=== PATIENT | male | born 1935 | race Caucasian/White ===

== ENCOUNTER 2022-04-10 12:00 | Emergency (ER) | payer OTHER, MEDICAID ==
[~2022-04-10] VITALS: Ht 162.6 cm; Wt 73.0 kg
[2022-04-10] MEDS ORDERED: SODIUM CHLORIDE 0.9% 1,000 ML IV ONE (12:30)
[2022-04-10 12:59] LABS: BASOPHILS % 0.3 % (0.0-2.0); EOSINOPHILS % 0.6 % (0.0-5.0); HEMATOCRIT. 44.7 % (42.0-52.0); HEMOGLOBIN. 14.9 g/dL (14.0-18.0); LYMPHOCYTES % 27.8 % (20.0-50.0); MEAN CORPUSCULAR HEMOGLOBIN 30.2 pg (28.0-32.0); MEAN CORPUSCULAR VOLUME 90.7 fL (80.0-94.0); MEAN PLATELET VOLUME 9.2 fl (7.4-10.4); MONOCYTES % 4.7 % (2.0-8.0); NEUTROPHILS % 66.6 % (40.0-76.0); PLATELET 281 x1000/uL (130-400); RED BLOOD CELL COUNT 4.92 mill/uL (4.7-6.1); RED CELL DISTRIBUTION WIDTH 14.2 % (11.6-14.6)
[2022-04-10 13:05] LABS: CHLORIDE 109 mEq/L (98-107)
[2022-04-10] MEDS ORDERED: ASPIRIN 81MG TABLET PO ONE (13:45)
[2022-04-10 15:00] LABS: INR 1.1; PARTIAL THROMBOPLASTIN TIME 23.2 sec (23.4-31.0)
[2022-04-10 20:45] VITALS: BP 134/77
== END 2022-04-10 21:19 | disposition short-term general hospital (02) ==
LOC: ER 12:46 → EDBEDREQ 13:42 → ER 21:19 → CANBEDREQ 04-11 01:12
DX: R55 Syncope and collapse (principal); E11.9 Type 2 diabetes mellitus without complications; I10 Essential (primary) hypertension; Z20.822 Contact with and (suspected) exposure to COVID-19
CPT/HCPCS: 36415; 71045; 80053; 83880; 84484; 85025; 85610; 85730; 87426; 93005; 96360; 99285; C9803; J7030